=== PATIENT | female | born 1950 | race Caucasian/White ===

== ENCOUNTER 2021-12-15 10:02 | Outpatient (CLI) | payer MEDICARE, OTHER | END 2021-12-15 10:03 | disposition home or self-care (01) | LOC: CSHMAMMO 10:02 | PROVIDERS: ATTEND Family Medicine | DX: Z12.31 Encounter for screening mammogram for malignant neoplasm of breast (principal); Z98.82 Breast implant status | CPT/HCPCS: 77063; 77067 ==

== ENCOUNTER 2022-06-18 13:22 | Emergency (ER) | payer MEDICARE, OTHER | END 2022-06-18 15:37 | disposition home or self-care (01) | LOC: CSHERS 13:22 | DX: M72.2 Plantar fascial fibromatosis (principal) ==